=== PATIENT | male | born 1980 | race Caucasian/White ===

== ENCOUNTER → 2018-06-08 | Emergency (ER) | payer SELFPAY ==
[~2018-06-08] MED LIST: Ibuprofen 200 MG TAB ONE; predniSONE 20 MG TAB ONE
== END ==
LOC: BURERS 05:45
DX: J45.901 Unspecified asthma with (acute) exacerbation (principal); F31.9 Bipolar disorder, unspecified; Z79.899 Other long term (current) drug therapy
CPT/HCPCS: 94640; J7506; J7620